=== PATIENT | male | born 1970 | race Hispanic/Latino ===

== ENCOUNTER 2016-08-26 07:34 | Emergency (ER) | payer OTHER ==
[2016-08-26] MEDS ORDERED: TORADOL IM ONE (08:22)
[2016-08-26] MEDS ORDERED: DELTASONE PO ONE (08:22)
--- NOTE | 2016-08-26 08:24 | Emergency Department Report ---
ED Back Pain/Injury HPI - General Chief Complaint: Back Pain/Injury Stated Complaint: BACK PAIN Time Seen by Provider: 08/26/16 08:02 Source: patient Limitations: No Limitations - History of Present Illness Initial Comments: worsening of chronic back pain today while undergoing PT MD Complaint: back pain -: Gradual, days(s) Similar Symptoms Previously: Yes Place: home Radiation: none Severity: mild Severity scale (0 -10): 2 Quality: aching Consistency: intermittent Improves With: movement Worsens With: none Context: turning/twisting Associated Symptoms: denies: confusion, weakness, chest pain, numbness, difficulty walking, cough, difficulty urinating, diaphoresis, incontinence, fever/chills, constipation, headaches, abdominal pain, loss of appetite, malaise , nausea/vomiting, rash, seizure, shortness of breath, syncope - Related Data Home Medications Medication Instructions Recorded Confirmed Last Taken Lisinopril/Hydrochlorothiazide 1 tab PO QDAY 08/26/16 08/26/16 08/25/16 [Zestoretic 20-12.5 mg] glipiZIDE [Glucotrol] 10 mg PO BID 08/26/16 08/26/16 08/25/16 metFORMIN [Glucophage] 500 mg PO BID 08/26/16 08/26/16 08/25/16 Previous Rx's Medication Instructions Recorded Last Taken Type Ibuprofen [Motrin] 600 mg PO Q8H PRN #12 tablet 08/26/16 Unknown Rx methOCARBAMOL [Robaxin TAB] 500 mg PO BID #14 tab 08/26/16 Unknown Rx Allergies Allergy/AdvReac Type Severity Reaction Status Date / Time No Known Allergies Allergy Unverified 08/26/16 07:49 ED Review of Systems ROS: Stated complaint: BACK PAIN Other details as noted in HPI Other: GENERAL: No weight change, fatigue, weakness, fever, chills, or night sweats SKIN: No changes in skin or hair, no itching, no rashes, no jaundice HEAD: No trauma, headache, or visual changes EYES: No blurriness, tearing, itching, acute visual loss, conjunctival discoloration, or scleral icterus EARS: No hearing loss, tinnitus, vertigo, or earache NOSE: No rhinorrhea, stuffiness, sneezing, itching, or epistaxis MOUTH: No bleeding gums, hoarseness, sore throat, or swelling CARDIAC: No new murmur, chest pain, palpitations, dyspnea on exertion, orthopnea , PND, or edema RESPIRATORY: No shortness of breath, wheeze, cough, sputum production, hemoptysis, pneumonia, asthma, bronchitis, or emphysema GI: No change in appetite, nausea, vomiting, dysphagia, change in bowel frequency, diarrhea, constipation, bleeding, hematemesis, melena, hematochezia, or abdominal pain URINARY: No frequency, urgency, polyuria, dysuria, hematuria, or incontinence MUSCULOSKELETAL: back pain NEUROLOGIC: No loss of sensation, numbness, tingling, tremors, weakness, paralysis, seizures HEMATOLOGIC: No anemia, easy bruising, bleeding, petechiae, or purpura ENDOCRINE: No hot or cold intolerance, sweating, polyuria, polydipsia or, polyphagia no thyroid problems PSYCHIATRIC: No change in mood, no anxiety, no depression ED Past Medical Hx - Past Medical History Previous Medical History?: Yes Hx Hypertension: Yes Hx Dementia: Yes - Surgical History Past Surgical History?: Yes Additional Surgical History: lower back - Social History Smoking Status: Never Smoker Substance Use Type: None - Medications Home Medications: Home Medications Medication Instructions Recorded Confirmed Last Taken Type Ibuprofen [Motrin] 600 mg PO Q8H PRN #12 tablet 08/26/16 Unknown Rx Lisinopril/Hydrochlorothiazide 1 tab PO QDAY 08/26/16 08/26/16 08/25/16 History [Zestoretic 20-12.5 mg] glipiZIDE [Glucotrol] 10 mg PO BID 08/26/16 08/26/16 08/25/16 History metFORMIN [Glucophage] 500 mg PO BID 08/26/16 08/26/16 08/25/16 History methOCARBAMOL [Robaxin TAB] 500 mg PO BID #14 tab 08/26/16 Unknown Rx ED Physical Exam - General Limitations: Physical Limitation - Other Other exam information: GENERAL: Patient in no acute distress HEAD: Normocephalic, atraumatic EYES: PERRLA, EOM intact, no scleral icterus, no conjunctival hemorrhage, visual wolff and acuity wnl, NOSE: No tenderness, discharge, sinus tenderness MOUTH: No erythema, bleeding, exudate HEART: Regular rate and rhythm, no murmur, S1-S2 are auscultated, pulses are symmetric LUNGS: No wheezing, rales, rhonchi, bilateral breath sounds ABDOMEN: Normal bowel sounds, no tenderness, no rebound, no guarding, no masses , no CVA tenderness MUSCULOSKELETAL: Normal joint range of motion, no redness, no swelling, no tenderness NEUROLOGIC: grossly intact motor/sensation PSYCHIATRIC: No homicidal or suicidal ideation, no anxiety, no depression, no hallucinations SKIN: Skin is warm and dry, no wounds, no rashes ED Course Vital Signs 08/26/16 08/26/16 08/26/16 07:37 07:45 07:46 Temperature 98.1 F Pulse Rate 78 Respiratory 16 Rate Blood Pressure 129/75 133/86 O2 Sat by Pulse 99 97 99 Oximetry 08/26/16 08/26/16 08/26/16 08:00 08:15 08:28 Temperature Pulse Rate Respiratory 16 Rate Blood Pressure 133/83 133/85 O2 Sat by Pulse 98 Oximetry 08/26/16 08:30 Temperature Pulse Rate Respiratory Rate Blood Pressure 127/85 O2 Sat by Pulse 96 Oximetry ED Medical Decision Making - Medical Decision Making Patient comfortable. Updated with results. Plan discharge with outpatient follow-up. Patient agrees with plan and will return if symptoms worsen. Critical care attestation.: If time is entered above; I have spent that time in minutes in the direct care of this critically ill patient, excluding procedure time. ED Disposition Clinical Impression: Back pain Qualifiers: Back pain location: low back pain Chronicity: unspecified Back pain laterality : unspecified Sciatica presence: with sciatica Sciatica laterality: sciatica of right side Qualified Code(s): M54.41 - Lumbago with sciatica, right side Disposition: TO HOME OR SELFCARE Is pt being admited?: No Condition: Stable Instructions: Low Back Strain (ED) Prescriptions: Ibuprofen [Motrin] 600 mg PO Q8H PRN #12 tablet PRN Reason: Pain methOCARBAMOL [Robaxin TAB] 500 mg PO BID #14 tab Referrals: PRIMARY MD NICOLE [Primary Care Provider] - 3-5 Days LUBNA MITCHELL MD [Staff Physician] - 3-5 Days Time of Disposition: 08:23
[2016-08-26 08:40] VITALS: BP 127/85
== END 2016-08-26 08:40 | disposition home or self-care (01) ==
LOC: ED 07:34
DX: M54.41 Lumbago with sciatica, right side (principal); I10 Essential (primary) hypertension; F03.90 Unspecified dementia, unspecified severity, without behavioral disturbance, psychotic disturbance, mood disturbance, and anxiety; X58.XXXA Exposure to other specified factors, initial encounter; Y93.89 Activity, other specified; Y99.9 Unspecified external cause status; Y92.009 Unspecified place in unspecified non-institutional (private) residence as the place of occurrence of the external cause
CPT/HCPCS: 96372; 99283; J1885; J7512

== ENCOUNTER 2017-03-04 13:43 | Emergency (ER) | payer OTHER ==
[2017-03-04 14:10] VITALS: BP 136/84
[2017-03-04 14:57] LABS: Hematocrit 44.5 % (35.5-45.6); Mean Corpuscular HGB Conc 34 % (32-34); Mean Corpuscular Hemoglobin 31 pg (28-32); Mean Corpuscular Volume 90 fl (84-94); Red Blood Count 4.92 M/mm3 (3.65-5.03); Red Cell Distribution Width 14.1 % (13.2-15.2)
[2017-03-04 15:07] LABS: Anion Gap 18 mmol/L; BUN/Creatinine Ratio 13; Blood Urea Nitrogen 12 mg/dL (9-20); Calcium 9.6 mg/dL (8.4-10.2); Carbon Dioxide 29 mmol/L (22-30); Chloride 98.8 mmol/L (98-107); Glucose 222 mg/dL (75-100); Potassium 4.3 mmol/L (3.6-5.0); Sodium 141 mmol/L (137-145)
[2017-03-04 16:01] LABS: Basophils % (Manual) 0 % (0.0-1.8); Blastocytes % (Manual) 0 %; Eosinophils % (Manual) 0 % (0.0-4.3)
[2017-03-04 16:02] LABS: Anisocytosis 1+; Diff Status Complete; Large Platelets Few; Platelet Estimate Appears Decreased; Poikilocytosis 1+
[2017-03-04 16:40] LABS: Platelet Count 102 K/mm3 (140-440)
== END 2017-03-04 20:05 | disposition left against medical advice (07) ==
LOC: ED 13:43
DX: R07.9 Chest pain, unspecified (principal); Z53.21 Procedure and treatment not carried out due to patient leaving prior to being seen by health care provider
CPT/HCPCS: 36415; 80048; 84484; 85007; 85025; 93005; 93010

== ENCOUNTER 2018-08-03 14:42 | Emergency (ER) | payer SELFPAY ==
--- NOTE | 2018-08-03 15:02 | Emergency Department Report ---
Blank Doc - Documentation Documentation: This is a 47-year-old male that presents with chest pain. Denies any SOB. St moe is in [place] area with no radiation. This initial assessment/diagnostic orders/clinical plan/treatment(s) is/are subject to change based on patient's health status, clinical progression and re- assessment by fellow clinical providers in the ED. Further treatment and workup at subsequent clinical providers discretion. Patient/guardians urged not to elope from the ED as their condition may be serious if not clinically assessed and managed. Initial orders include: 1- Patient sent to [facility] for further evaluation and treatment 2- labs 3- CXR 4- EKG
[2018-08-03 15:26] LABS: Hematocrit 39.7 % (35.5-45.6); Hemoglobin 13.4 gm/dl (11.8-15.2); Mean Corpuscular HGB Conc 34 % (32-34); Mean Corpuscular Volume 93 fl (84-94); Platelet Count 120 K/mm3 (140-440); Red Blood Count 4.27 M/mm3 (3.65-5.03); Red Cell Distribution Width 14.8 % (13.2-15.2)
[2018-08-03 15:37] LABS: INR 1.11 (0.87-1.13)
[2018-08-03 15:38] LABS: Partial Thromboplastin Time 29.2 Sec. (24.2-36.6)
[2018-08-03 15:48] LABS: BUN/Creatinine Ratio 14; Blood Urea Nitrogen 13 mg/dL (9-20); Calcium 8.7 mg/dL (8.4-10.2); Hemolysis Index 10
--- NOTE | 2018-08-03 16:15 | XRay Report ---
PROCEDURE: XR CHEST ROUTINE 2V TECHNIQUE: PA and lateral chest radiographs were obtained. HISTORY: Chest Pain COMPARISONS: None. FINDINGS: Frontal and lateral views the chest were acquired. There is cardiomegaly. The lungs appear mildly hyperinflated but clear. The pulmonary vasculature is within normal limits. IMPRESSION: Cardiomegaly No evidence of congestive heart failure No consolidative infiltrate This document is electronically signed by Allen Fontanez MD., Aug 03 2018 04:13:37 PM ET
[2018-08-03 17:01] LABS: Band Neutrophils # (Manual) 0.1 K/mm3; Basophils % (Manual) 0 % (0.0-1.8); Total Cells Counted 100
[2018-08-03 17:02] LABS: Ovalocytes Few; Platelet Estimate Consistent w Auto
[2018-08-03] MEDS ORDERED: PROTONIX PO ONE (17:55)
[2018-08-03] MEDS ORDERED: CARAFATE PO ONE (17:55)
[2018-08-03] MEDS ORDERED: TORADOL IM ONE (17:56)
--- NOTE | 2018-08-03 17:57 | Emergency Department Report ---
ED Chest Pain HPI - General Chief Complaint: Chest Pain Stated Complaint: SEVERE UPPER CHEST PAIN Time Seen by Provider: 08/03/18 15:00 Source: patient, RN notes reviewed, old records reviewed Mode of arrival: Ambulatory Limitations: No Limitations - History of Present Illness Initial Comments: Primary care Dr.: Dr. Jean Past medical history: Obesity, diabetes, hypertension, psoriasis Reports a normal cardiac catheterization at [facility], in 2017 This is a 45-year-old gentleman, right-hand dominant, not known to this provider previously. The patient presents to the emergency room today with complaint of nontraumatic left-sided chest wall pain. The pain is constant for the past 2-3 weeks. It does not radiate to the back, arms or neck. There is no vomiting, diaphoresis, shortness of breath or difficulty with exertion. The patient d enies DVT, pulmonary embolus risk factors. He indicates that a few days ago, he felt like he twisted his neck, and trapezius, and muscles in his back. Since then, he's been having upper paraspinal back pain. Patient reports taking acetaminophen, Naprosyn,, aspirin [id number]. His pain is achy, increases with palpation. It is not really decreased. He denies a family history of ischemic heart disease. He denies a family history of DVT, pulmonary embolus. The patient thinks he may taken up to 1500 mg of aspirin within a 36 hour period. MD Complaint: chest pain -: Gradual, week(s) Onset: during rest Pain Location: left chest Pain Radiation: none Severity: moderate Quality: other Improves With: other Worsens With: other re: denies: nausea, vomting, diaphoresis, dyspnea, sense of impending doom Other Symptoms: denies: cough, fever, syncope, rash, acid taste in mouth, leg swelling, palpitations, burping Treatments Prior to Arrival: aspirin, other Aspirin use within the Past 7 Days: (1) Yes - Related Data On Oral Contraceptives: No Home Medications Medication Instructions Recorded Confirmed Last Taken Lisinopril/Hydrochlorothiazide 1 tab PO QDAY 08/26/16 08/26/16 08/25/16 [Zestoretic 20-12.5 mg] glipiZIDE [Glucotrol] 10 mg PO BID 08/26/16 08/26/16 08/25/16 metFORMIN [Glucophage] 500 mg PO BID 08/26/16 08/26/16 08/25/16 Previous Rx's Medication Instructions Recorded Last Taken Type Ibuprofen [Motrin] 600 mg PO Q8H PRN #12 tablet 08/26/16 Unknown Rx methOCARBAMOL [Robaxin TAB] 500 mg PO BID #14 tab 08/26/16 Unknown Rx Acetaminophen [Non-Aspirin Extra 500 mg PO Q6HR PRN #30 tablet 08/03/18 Unknown Rx Strength] Aspirin [Aspirin BABY CHEW TAB] 81 mg PO QDAY #30 tab.chew 08/03/18 Unknown Rx Famotidine [Pepcid] 20 mg PO BID #60 tablet 08/03/18 Unknown Rx Lidocaine [Lidoderm] 1 each TP QDAY #5 adh..patch 08/03/18 Unknown Rx Allergies Allergy/AdvReac Type Severity Reaction Status Date / Time No Known Allergies Allergy Verified 03/04/17 14:05 Heart Score - HEART Score History: Slightly suspicious EKG: Non-specific Age: 45-65 Risk factors: > 3 risk factors or hx of atherosclerotic disease Troponin: < normal limit HEART Score: 4 - Critical Actions Critical Actions: 4-6 pts:12-16.6% risk of adverse cardiac event. Should be admitted (heart score is appreciated, however patient endorses 3 weeks of symptoms and a negative cath 2 years ago) ED Review of Systems ROS: Stated complaint: SEVERE UPPER CHEST PAIN Other details as noted in HPI Constitutional: denies: fever Eyes: denies: eye discharge ENT: denies: epistaxis Respiratory: denies: cough Cardiovascular: chest pain Gastrointestinal: denies: abdominal pain, nausea Genitourinary: denies: urgency Musculoskeletal: back pain, myalgia Skin: other (chronic psoriasis lesions noted) Neurological: denies: weakness Psychiatric: anxiety ED Past Medical Hx - Past Medical History Previous Medical History?: Yes Hx Hypertension: Yes Hx Diabetes: Yes Hx Dementia: Yes - Surgical History Past Surgical History?: Yes Additional Surgical History: lower back - Social History Smoking Status: Never Smoker Substance Use Type: None - Medications Home Medications: Home Medications Medication Instructions Recorded Confirmed Last Taken Type Ibuprofen [Motrin] 600 mg PO Q8H PRN #12 tablet 08/26/16 Unknown Rx Lisinopril/Hydrochlorothiazide 1 tab PO QDAY 08/26/16 08/26/16 08/25/16 History [Zestoretic 20-12.5 mg] glipiZIDE [Glucotrol] 10 mg PO BID 08/26/16 08/26/16 08/25/16 History metFORMIN [Glucophage] 500 mg PO BID 08/26/16 08/26/16 08/25/16 History methOCARBAMOL [Robaxin TAB] 500 mg PO BID #14 tab 08/26/16 Unknown Rx Acetaminophen [Non-Aspirin Extra 500 mg PO Q6HR PRN #30 tablet 08/03/18 Unknown Rx Strength] Aspirin [Aspirin BABY CHEW TAB] 81 mg PO QDAY #30 tab.chew 08/03/18 Unknown Rx Famotidine [Pepcid] 20 mg PO BID #60 tablet 08/03/18 Unknown Rx Lidocaine [Lidoderm] 1 each TP QDAY #5 adh..patch 08/03/18 Unknown Rx ED Physical Exam - General Limitations: No Limitations General appearance: alert, anxious, obese - Head Head exam: Present: atraumatic, normocephalic - Eye Eye exam: Present: normal appearance, EOMI. Absent: nystagmus - ENT ENT exam: Present: normal exam, normal orophraynx, mucous membranes moist, normal external ear exam - Neck Neck exam: Present: normal inspection, full ROM. Absent: tenderness, meningismus - Respiratory Respiratory exam: Present: normal lung sounds bilaterally, chest wall tenderness. Absent: respiratory distress - Cardiovascular Cardiovascular Exam: Present: regular rate, normal rhythm, normal heart sounds. Absent: bradycardia, tachycardia, irregular rhythm, systolic murmur, diastolic murmur, rubs, gallop - GI/Abdominal GI/Abdominal exam: Present: soft. Absent: distended, tenderness, guarding, rebound, rigid, pulsatile mass - Rectal Rectal exam: Present: deferred - Extremities Exam Extremities exam: Present: full ROM (chronic-appearing psoriasis lesions noted), other (2+ pulses noted in the bilateral upper, lower extremities. Compartments soft. No long bony tenderness. The pelvis is stable.). Absent: calf tenderness - Back Exam Back exam: Present: normal inspection, full ROM, paraspinal tenderness. Absent: tenderness, CVA tenderness (R), CVA tenderness (L), muscle spasm, vertebral ten derness - Neurological Exam Neurological exam: Present: alert, oriented X3, normal gait, other (Extraocular movements intact. Tongue midline. No facial droop. Facial sensation intact to light touch in the V1, V2, V3 distribution bilaterally. 5 and 5 strength in 4 extremities.. Sensation is intact to light touch in 4 extremities.). Absent: motor sensory deficit - Psychiatric Psychiatric exam: Present: normal affect - Skin Skin exam: Present: warm, dry, intact, normal color. Absent: rash ED Course Vital Signs 08/03/18 08/03/18 08/03/18 15:01 18:17 19:00 Temperature 98.2 F Pulse Rate 74 63 Respiratory 18 16 18 Rate Blood Pressure 139/74 Blood Pressure 129/75 [Right] O2 Sat by Pulse 97 97 Oximetry - Reevaluation(s) Reevaluation #1: 08/03/18 18:27 Differential diagnosis, including but not limited to: GERD, gastritis, hiatal hernia, costochondritis, anxiety, pericarditis, myocarditis, pneumonia, acute coronary syndrome \ Assessment and plan: 47-year-old gentleman, not tachycardic, not hypoxic, no DVT or pulmonary embolus risk factors, low risk by well's criteria, perc negative, EKG unchanged 2, troponin negative 1, heart score of 4 is reviewed and appreciated, however, given 3 weeks of symptoms, negative troponin, unchanged EKG, and reported clean cardiac catheterization in 2017, it is my pain the patient is medically suitable to follow-up with an outpatient refractory furnace designer to complete a restrained medication. Suspect musculoskeletal etiology versus GERD, gastritis. His pain will be treated. Repeat laboratory studies pending. Counseled patient on need to closely follow up as an outpatient. Reevaluation #3: 08/03/18 19:16 Vital signs unremarkable. Patient in no distress. We will discharge the p atient. TRAY score - Tray Score Age > 65: (0) No Aspirin use within the Past 7 Days: (1) Yes 3 or more CAD Risk Factors: (1) Yes 2 or more Angina events in past 24 hrs: (0) No Known CAD with more than 50% Stenosis: (0) No Elevated Cardiac Markers: (0) No ST Deviation Greater than 0.5mm: (0) No TRAY Score: 2 ED Medical Decision Making - Lab Data Result diagrams: 08/03/18 15:15 08/03/18 15:15 Vital Signs 08/03/18 08/03/18 15:01 18:17 Temperature 98.2 F Pulse Rate 74 Respiratory 18 16 Rate Blood Pressure 139/74 O2 Sat by Pulse 97 Oximetry Lab Results 08/03/18 08/03/18 08/03/18 Range/Units 15:15 15:15 15:15 WBC 5.0 (4.5-11.0) K/mm3 RBC 4.27 (3.65-5.03) M/mm3 Hgb 13.4 (11.8-15.2) gm/dl Hct 39.7 (35.5-45.6) % MCV 93 (84-94) fl MCH 31 (28-32) pg MCHC 34 (32-34) % RDW 14.8 (13.2-15.2) % Plt Count 120 L (140-440) K/mm3 Add Manual Diff Complete Total Counted 100 Seg Neuts % (Manual) 44.0 (40.0-70.0) % Band Neutrophils % 1.0 % Lymphocytes % (Manual) 42.0 H (13.4-35.0) % Reactive Lymphs % (Man) 0 % Monocytes % (Manual) 12.0 H (0.0-7.3) % Eosinophils % (Manual) 1.0 (0.0-4.3) % Basophils % (Manual) 0 (0.0-1.8) % Metamyelocytes % 0 % Myelocytes % 0 % Promyelocytes % 0 % Blast Cells % 0 % Nucleated RBC % Not Reportable Seg Neutrophils # Man 2.2 (1.8-7.7) K/mm3 Band Neutrophils # 0.1 K/mm3 Lymphocytes # (Manual) 2.1 (1.2-5.4) K/mm3 Abs React Lymphs (Man) 0.0 K/mm3 Monocytes # (Manual) 0.6 (0.0-0.8) K/mm3 Eosinophils # (Manual) 0.1 (0.0-0.4) K/mm3 Basophils # (Manual) 0.0 (0.0-0.1) K/mm3 Metamyelocytes # 0.0 K/mm3 Myelocytes # 0.0 K/mm3 Promyelocytes # 0.0 K/mm3 Blast Cells # 0.0 K/mm3 WBC Morphology Not Reportable Hypersegmented Neuts Not Reportable Hyposegmented Neuts Not Reportable Hypogranular Neuts Not Reportable Smudge Cells Not Reportable Toxic Granulation Not Reportable Toxic Vacuolation Not Reportable Dohle Bodies Not Reportable Pelger-Huet Anomaly Not Reportable Татьяна Rods Not Reportable Platelet Estimate Consistent w auto Clumped Platelets Not Reportable Plt Clumps, EDTA Not Reportable Large Platelets Not Reportable Giant Platelets Not Reportable Platelet Satelliting Not Reportable Plt Morphology Comment Not Reportable RBC Morphology Not Reportable Dimorphic RBCs Not Reportable Polychromasia Not Reportable Hypochromasia Not Reportable Poikilocytosis Not Reportable Anisocytosis Not Reportable Microcytosis Not Reportable Macrocytosis Not Reportable Spherocytes Not Reportable Pappenheimer Bodies Not Reportable Sickle Cells Not Reportable Target Cells Not Reportable Tear Drop Cells Not Reportable Ovalocytes Few Helmet Cells Not Reportable Zamora-Nixon Bodies Not Reportable [place] Rings Not Reportable Des Cells Not Reportable Bite Cells Not Reportable Crenated Cell Not Reportable Elliptocytes Not Reportable Acanthocytes (Spur) Not Reportable Rouleaux Not Reportable Hemoglobin C Crystals Not Reportable Schistocytes Not Reportable Malaria parasites Not Reportable Nazario Bodies Not Reportable Hem Pathologist Commnt No PT 15.0 H (12.2-14.9) Sec. INR 1.11 (0.87-1.13) APTT 29.2 (24.2-36.6) Sec. Sodium 139 (137-145) mmol/L Potassium 4.0 (3.6-5.0) mmol/L Chloride 100.8 (98-107) mmol/L Carbon Dioxide 26 (22-30) mmol/L Anion Gap 16 mmol/L BUN 13 (9-20) mg/dL Creatinine 0.9 (0.8-1.5) mg/dL Estimated GFR > 60 ml/min BUN/Creatinine Ratio 14 % Glucose 291 H (75-100) mg/dL Calcium 8.7 (8.4-10.2) mg/dL Troponin T < 0.010 (0.00-0.029) ng/mL - EKG Data -: EKG Interpreted by [place] EKG shows normal: sinus rhythm Rate: normal - EKG Data Interpretation: unchanged when compared t 08/03/18 18:26 EKG #1 shows a sinus rhythm, 78 bpm, left axis deviation, motion artifact, low voltage, borderline left anterior fascicular block. This EKG appears to be unchanged from prior EKG from 03/04/2017. EKG #2 appears to be unchanged from the prior EKG. Another EKG is consistent with ST elevation myocardial infarction. - Radiology Data Radiology results: pending, report reviewed, image reviewed X-ray of the chest is reviewed and is unremarkable Critical care attestation.: If time is entered above; I have spent that time in minutes in the direct care of this critically ill patient, excluding procedure time. ED Disposition Clinical Impression: Chest wall pain Disposition: DC-01 TO HOME OR SELFCARE Is pt being admited?: No Does the pt Need Aspirin: No Condition: Stable Instructions: Chest Pain (ED), Costochondritis (ED) Additional Instructions: Take the pain medication as needed/directed. Rest, avoid heavy lifting, and avoid strenuous physical activities. Discontinue/avoid consumption of Motrin, ibuprofen, Naprosyn, Aleve, until cleared by a stores clerk doctor to take these medications. Take a Tylenol and aspirin as directed. Follow up with a stores clerk within the next 3-4 weeks. Follow-up with a refractory furnace designer within the next 3-5 days. Return to the emergency room right away with new pain, worsening pain, migration of pain, projectile vomiting, change in mental status, confusion, inability to tolerate liquid feeds, new, worsening or different symptoms. Prescriptions: Aspirin [Aspirin BABY CHEW TAB] 81 mg PO QDAY #30 tab.chew Lidocaine [Lidoderm] 1 each TP QDAY #5 adh..patch Acetaminophen [Non-Aspirin Extra Strength] 500 mg PO Q6HR PRN #30 tablet PRN Reason: Pain , Severe (7-10) Famotidine [Pepcid] 20 mg PO BID #60 tablet Referrals: [facility] [Provider Group] - 3-5 Days [facility] [Provider Group] - 3-5 Days [facility] [Provider Group] - 3-5 Days
[2018-08-03 19:06] VITALS: BP 129/75
== END 2018-08-03 19:33 | disposition home or self-care (01) ==
LOC: ED 14:42
DX: R07.89 Other chest pain (principal); I10 Essential (primary) hypertension; E11.9 Type 2 diabetes mellitus without complications; F03.90 Unspecified dementia, unspecified severity, without behavioral disturbance, psychotic disturbance, mood disturbance, and anxiety; Z79.899 Other long term (current) drug therapy
CPT/HCPCS: 36415; 71046; 80048; 82550; 84484; 85007; 85025; 85610; 85730; 93005; 93010; 96372; 99284; G0480; J1885; 80320

== ENCOUNTER 2021-08-29 00:16 | Emergency (ER) | payer SELFPAY ==
[2021-08-29 00:50] VITALS: BP 111/55
--- NOTE | 2021-08-29 09:07 | Electrocardiograph Report ---
[facility] Test Date: 2021-08-29 Test Time: 00:49:34 Pat Name: LUBNA CAPUTO Department: Room: Gender: M Engineering And Scientific Programmer: JOANNA : 1970 Requested By: ED DOC Order Number: [id number] Reading MD: Gareth Gomez Measurements Intervals [place] Rate: 84 P: 64 MD: 157 QRS: -9 QRSD: 85 T: 19 QT: 367 QTc: 434 Interpretive Statements Sinus rhythm Low voltage, precordial leads No previous ECG available for comparison Electronically Signed On 08-29-2021 9:07:16 EDT by Gareth Gomez
== END 2021-08-29 02:45 | disposition left against medical advice (07) ==
LOC: ED 00:16
DX: R07.9 Chest pain, unspecified (principal); Z53.21 Procedure and treatment not carried out due to patient leaving prior to being seen by health care provider
CPT/HCPCS: 93005